=== PATIENT | male | born 1940 | race Caucasian/White ===

== ENCOUNTER 2024-02-27 11:17 | Emergency (ER) | payer MEDICARE, OTHER, SELFPAY ==
[2024-02-27] VITALS (11 sets, daily range): BP systolic 130–162; BP diastolic 61–75; PULSE 56–64; RESP 17–18; TEMP 36.8–37.3; O2SAT 94–98; BMI 25.7
--- NOTE | 2024-02-27 11:26 | ED.SOB ---
HPI - SOB/Dyspnea General Chief Complaint: Shortness of Breath/Dyspnea Stated Complaint: having a Hard time breathing Time Seen by Provider: 02/27/24 11:26 History of Present Illness HPI Narrative: 83-year-old male with no history of chronic heart or lung problems, returned from [place] cruise with his who had been coughing, had a COVID test that was negative, he has been coughing since yesterday, has had some nasal congestion, took nasal spray this morning, has sensation of his throat closing. No change in phonation. No swelling to his anterior neck. No trauma injury. He does not have wheezing or chest pain. He has no rash or itching. No sensation of tongue swelling. No lip swelling or eyelid or other facial swelling. He has not tried any medication for this thus far. Related Data Previous Rx's Medication Instructions Recorded nirmatrelvir 300 mg (150 mg See Rx Instructions PO .COMPLEX 02/27/24 x2)-ritonavir 100 mg tablet,dose #30 ea pack (Paxlovid) prednisone 20 mg tablet 40 mg (2 x 20 mg) PO DAILY 5 days 02/27/24 #10 tabs Allergies Allergy/AdvReac Type Severity Reaction Status Date / Time No Known Drug Allergies Allergy Verified 02/27/24 11:29 Review of Systems Review of Systems Narrative: see HPI Patient History Social History Smoking Status: Never smoker Exam Narrative Exam Narrative: GENERAL: Well-developed patient, in mild distress. HEAD: Atraumatic. Normocephalic. EYES: Pupils equal round and reactive. Extraocular motions intact. No scleral icterus. No injection or drainage. ENT: Nose without bleeding, purulent drainage. Throat without erythema, tonsillar hypertrophy or exudate. Airway patent. NECK: Trachea midline. Non tender. MOves neck well, no drool, no trismus CARDIOVASCULAR: Regular rate and rhythm without murmurs, gallops, or rubs. RESPIRATORY: Clear to auscultation. Breath sounds equal bilaterally. No wheezes, rales, or rhonchi. GASTROINTESTINAL: Abdomen soft, non-tender, nondistended. EXTREMITIES: No edema or joint tenderness. BACK: Nontender without deformity or crepitance. No flank tenderness. NEURO: AOx3. Motor function grossly nonfocal SKIN: No rash or erythema of visible areas Initial Vital Signs Initial Vital Signs: Vital Signs Pulse Rate 63 02/27/24 11:24 Pulse Oximetry 96 02/27/24 11:24 Course Orders Ordered: Discontinued Medications Diphenhydramine HCl (Diphenhydramine 25 Mg Tablet) 50 mg PO NOW ONE Stop: 02/27/24 11:34 Last Admin: 02/27/24 11:38 Dose: 50 mg Documented By: EDIS Prednisone (Prednisone 20 Mg Tablet) 60 mg PO NOW ONE Stop: 02/27/24 11:34 Last Admin: 02/27/24 11:39 Dose: 60 mg Documented By: EDIS Vital Signs Vital signs: Vital Signs - 8 hr 02/27/24 14:22 Temperature 99.2 F Respiratory Rate 18 MDM - SOB/Dyspnea Lab Data Attestation: I reviewed the patient's lab results. Labs: Lab Results 02/27/24 Range/Units 11:25 SARS-CoV-2 (PCR) Positive H (Negative) Influenza A (RT-PCR) Flu a negative (NEGATIVE) Influenza B (RT-PCR) Flu b negative (NEGATIVE) RSV (PCR) Negative (Negative) [facility] Narrative Medical decision making narrative: 83-year-old male with recent URI symptoms, with similar symptoms, having used nasal spray this morning, with throat tightening sensation. Normal phonation, normal range of motion, no drool or trismus. No respiratory distress or stridor. Possible reaction to nasal spray. Oral prednisone, oral Benadryl. Observe for the emergency department for now. Discontinue use of nasal spray medication. COVID swab sent. Patient feels better with oral prednisone and antihistamine. COVID swab positive, influenza negative. Patient would like antiviral treatment with Paxlovid, sent to pharmacy. If there was allergic reaction to the topical spray counting for the throat symptoms, and throat tightness symptoms, we will give prednisone pulse for the next few days, and encouraged use of antihistamine next few days. Recheck symptoms advised his regular provider if not improved in the next couple of days. Patient advised if he will take antiviral Paxlovid to take it as soon as possible to have maximum beneficial effect, and take for full 5 day course if tolerated. Consider use of home pulse oximeter to monitor oxygen levels, recheck if less than 90%, or if increasing shortness of breath or any concerns. Home with Discharge Plan Departure Patient Disposition: Home Clinical Impression: Upper respiratory infection, Throat discomfort, COVID-19 Activity Restrictions/Additional Instructions: Recent cough cold symptoms, no oxygen requirement, throat tightening sensation after use of a topical nasal spray. Possible allergic reaction versus local irritation from the throat spray. Steroids were given, antihistamines given, symptoms were improved, able to walk around without difficulty area without shortness of breath. No rash or hives. COVID swab was positive, influenza swab was negative. We discussed antiviral therapy, you would be interested in trying Paxlovid treatment, symptoms less than 5 days. Prescription sent to local pharmacy. Steroid pulse for possible allergic reaction also sent to pharmacy. Discontinue the use of the throat spray. Please wear mask in public until course of your Paxlovid 5 days completed. Consider use of home pulse oximeter to check oxygen levels, recheck if less than 90%, also if any concerns of shortness of breath or chest discomfort. Consider recheck with your regular doctor if not improving in the next couple of days. Return to this/nearest emergency department for any change worsening symptoms or any concerns prior Prescriptions: New prednisone 20 mg tablet 40 mg PO DAILY 5 Days Qty: 10 0RF Paxlovid 300 mg (150 mg x 2)-100 mg tablets,dose pack See Rx Instructions .ROUTE .COMPLEX Qty: 30 0RF Rx Instructions: take TWO 150 mg tablets of nirmatrelvir with ONE 100 mg tablet of ritonavir twice daily for 5 days Referrals: Rory Tejada MD [Primary Care Provider] - Stand Alone Forms: Patient Portal/API
--- NOTE | 2024-02-27 11:31 | PC.NURSE ---
Pt states he took mucinex and feels it is harder to breathe. Pt cervical lymph nodes feel very inflamed. No oral swelling noted in mouth. Pt states he was on a cruise and came back with a cold. Pt able to manage secretions. Lung sounds clear and equal bilaterally. Trachea clear on auscultation
[2024-02-27] MEDS: diphenhydrAMINE 25 MG TABLET 50 MG PO (11:38)
[2024-02-27] MEDS: predniSONE 20 MG TABLET 60 MG PO (11:39)
--- NOTE | 2024-02-27 12:30 | PC.NURSE ---
Pt becoming upset saying he cannot breathe; RN reassessed and no signs of oral or facial edema noted, lung sounds clear and equal bilaterally anteriorly and posteriorly. Trachea auscultated and clear. MD informed. Pt informed we will continue to monitor and suggested to engage in distracting techniques (i.e., reading, watching a show on phone etc.) Pt thinks this was a good idea. Pt reassured oxygen and assessment are reassuring.
[2024-02-27 12:59] LABS: Influenza A - CEPHEID Flu A NEGATIVE (NEGATIVE); Influenza B - CEPHEID Flu B NEGATIVE (NEGATIVE); Respiratory Syncytial Virus Negative (Negative)
[2024-02-27 13:12] LABS: COVID-19 CEPHEID 4-PLEX PCR POSITIVE (Negative)
== END 2024-02-27 14:25 | disposition home or self-care (01) ==
PROVIDERS: Emergency Provider Emergency Medicine; Family Provider Urology; PCP Urology
DX: U07.1 COVID-19 (principal); J02.9 Acute pharyngitis, unspecified
CPT/HCPCS: 0241U; 99283